=== PATIENT | female | born 1985 | race Caucasian/White ===

== ENCOUNTER 2024-11-26 11:28 | Emergency (ER) | payer SELFPAY ==
[~2024-11-26] VITALS: Ht 152.4 cm; Wt 57.0 kg
[2024-11-26] MEDS ORDERED: ASPIRIN 81 MG/TAB PO ONE (11:45)
[2024-11-26 12:05] LABS: BASO% 0.7 % (0-3); EOS% 1.4 % (0-8); HEMATOCRIT 41.4 % (37.0-47.0); HEMOGLOBIN 14.3 g/dl (12.0-16.0); LYMPH% 23.1 % (15-41); MEAN CELL VOLUME 94.1 fL CALC (80.0-100.0); MEAN CORPUSCULAR HGB 32.5 pG CALC (26.0-32.0); MEAN CORPUSCULAR HGB CONC 34.5 g/dL CAL (32.0-36.0); MONO% 11.5 % (2-13); NEUT# 3.62 thou/uL (2.00-7.15); NEUT% 63.3 % (42-76); RED BLOOD COUNT 4.4 mill/uL (4.20-5.60); RED CELL DISTRI WIDTH 11.8 % (11.5-15.5)
[2024-11-26 12:14] VITALS: BP 122/75
[2024-11-26 12:17] LABS: ALBUMIN 4.6 g/dL (3.2-5.0); ALKALINE PHOSPHATASE 62 u/l (38-126); ANION GAP 14 (6-22 (CALC)); BILIRUBIN, TOTAL 0.5 mg/dL (0.02-1.3); BUN 21 mg/dL (7-17); BUN/CREATININE RATIO 25 (12-20 (CALC)); CARBON DIOXIDE 24 mmol/l (22-30); CHLORIDE 105 mmol/l (95-108); CREATININE 0.8 mg/dL (0.5-1.0); ESTIMATED GFR 97 ML/MIN (>=90 (CALC)); POTASSIUM 4.1 mmol/l (3.5-5.1); SGOT/AST 34 u/l (14-36); SODIUM 138 mmol/l (137-146); TOTAL PROTEIN 7.7 g/dL (6.3-8.2)
[2024-11-26 12:31] VITALS: BP 107/70
[2024-11-26 12:45] VITALS: BP 110/75
[2024-11-26 13:00] VITALS: BP 104/73
[2024-11-26 13:15] VITALS: BP 113/73
[2024-11-26 13:20] VITALS: BP 113/73
== END 2024-11-26 13:28 | disposition home or self-care (01) | DRG 313 ==
LOC: ED 11:28
PROVIDERS: Family Medicine
DX: R07.89 Other chest pain (principal); F17.210 Nicotine dependence, cigarettes, uncomplicated